=== PATIENT | female | born 1940 | race Caucasian/White ===

== ENCOUNTER 2017-11-12 06:05 | Inpatient (IN) ==
[2017-11-12] MEDS ORDERED: *HR* HYDROcodone/Acet 5/325 mg TABLET PO ONE (06:12)
[2017-11-12] MEDS ORDERED: cefTRIAXone 1,000 MG in Water for inj. (sterile) 20 ML 10 ML IVP ONE (06:13)
--- NOTE | 2017-11-12 06:16 | Emergency Department Note ---
Disposition Clinical Impression: Cellulitis Qualifiers: Site of cellulitis: extremity Site of cellulitis of extremity: lower extremity Laterality: left Qualified Code(s): L03.116 - Cellulitis of left lower limb Disposition: Still a Patient Condition: Fair Referrals: Dima Shaikh MD [Primary Care Provider] - Forms: ED Satisfaction Letter Extremity Problem HPI - General Chief complaint: ED Extremity Problem,Nontraumatic Stated complaint: recheck of LLE celluitis Time Seen by Provider: 11/12/17 06:11 Source: patient Mode of arrival: EMS Limitations: no limitations Nursing Notes Reviewed: Yes Vital Signs Reviewed: Yes - History of Present Illness HPI Narrative: 77-year-old female with history of hypertension, chronic kidney disease as well as recent diagnosis of cellulitis presents for evaluation of left lower leg pain and swelling. Patient notes that symptom onset with the swelling and the pain is been over the past 2 weeks. States she is been on Keflex since Monday. Patient does note some mild relief of the swelling however the redness has progressed up the leg. Patient denies history of diabetes. Patient states she has been taking her medications as directed. Reports low- grade fevers. Denies any chest pain, shortness of breath, cough. Denies any nausea or vomiting or abdominal pain. Denies any numbness or tingling of the extremities. Patient states that she has had some swelling that she attributed to recent blood pressure medication a couple months ago however the redness and pain worsened over the past 2 weeks. Pain Scale: 7 - Related Data Home Medications Medication Instructions Recorded Confirmed Albuterol Neb 06/04/16 Aspirin 06/04/16 Folbic Tablet 06/04/16 Lisinopril 06/04/16 Singulair 06/04/16 Theophylline 06/04/16 ATROVENT Inhaler 11/04/17 Amlodipine Besylate 11/04/17 Calcium Magnesium Caplet 11/04/17 Previous Rx's Medication Instructions Recorded Albuterol Sulfate [Albuterol 2 puff IH QID 2 Days inhaler 06/04/16 Inhaler] Allergies Allergy/AdvReac Type Severity Reaction Status Date / Time Sulfa (Sulfonamide Allergy Itching Verified 06/04/16 11:27 Antibiotics) codeine AdvReac Nausea Verified 11/04/17 16:21 All systems ED: reviewed and negative except as stated. Constitutional: Reports: fever Cardiovascular: Denies: chest pain Respiratory: Denies: cough, dyspnea Gastrointestinal: Denies: abdominal pain, nausea, vomiting Past Medical History - Past Medical History Source: patient Medical history: Reports: COPD, hypertension, other Surgical history: Reports: non-contributory - Social History Smoking Status: Never smoker Smokeless Tobacco Status: No Alcohol use: Reports: none Drug use: Reports: none Physical Exam - General Limitations: no limitations General appearance: alert, in no apparent distress - Head Head exam: atraumatic, normocephalic, normal inspection - Eye Eye exam: Present: normal appearance, PERRL, EOMI - ENT ENT exam: normal exam, mucous membranes moist - Neck Neck exam: Present: normal inspection - Chest Chest inspection: Present: normal inspection, symmetric chest wall rise - Respiratory Respiratory exam: Present: normal lung sounds bilaterally. Absent: respiratory distress - Cardiovascular Cardiovascular exam: Present: regular rate, normal rhythm. Absent: systolic murmur - Abdominal Exam Abdominal exam: Present: soft, Non-Tender - Expanded Lower Extremity Exam Hip/Pelvis exam: Present: normal inspection. Absent: tenderness Upper leg exam: Present: normal inspection. Absent: tenderness Knee exam: Present: normal inspection. Absent: tenderness Lower leg exam: Present: tenderness, swelling, erythema (Erythema tracking proximally up the lateral aspect of the leg. Warm to the touch. Consistent with cellulitis.). Absent: deformity, crepitus Neurovascular/Tendon exam: Present: normal capillary refill. Absent: pulse deficit, motor deficit, sensory deficit - Back Exam Back exam: Present: normal inspection - Neurological Exam Neurological exam: Present: alert - Skin Skin exam: Present: warm, dry, intact, normal color Course Course Narrative: Patient seen and examined. Patient's been on oral antibiotics however has had worsening pain and redness of the lower extremity. Patient's been on appropriate antibiotic regimen. Swelling appears to have improved however the patient's pain and redness has progressed. Patient will likely require admission. Patient will need IV antibiotics and close monitor sure symptom resolution. Given age and the patient's comorbidities as well as appropriate outpatient antibiotics the patient will be admitted to the hospital service. Vital Signs Temperature 99.4 F 11/12/17 06:06 Pulse Rate 97 11/12/17 06:06 Respiratory Rate 18 11/12/17 06:06 Blood Pressure 174/146 11/12/17 06:06 O2 Sat by Pulse Oximetry 97 11/12/17 06:06 Temperature 99.4 F 11/12/17 06:06 Pulse Rate 97 11/12/17 06:06 Respiratory Rate 18 11/12/17 06:06 Blood Pressure 174/146 11/12/17 06:06 O2 Sat by Pulse Oximetry 97 11/12/17 06:06 Oxygen Delivery Oxygen Delivery Room Air Extremity Problem, Nontraumati - [facility] Narrative Medical decision making narrative: 77-year-old female persists for evaluation of leg pain and swelling. Patient was diagnosed with cellulitis. Clinically the patient has progression of cellulitis in redness. Patient's been on antibiotics over the past 5 days however the redness has progressed. Patient clinically does not have signs or symptoms of a DVT or underlying blood clot. Given the patient's age comorbidities as well as being on antibiotics for the past week with progression of symptoms patient would likely need admission with IV antibiotics to ensure symptom resolution. Patient has soft compartments and there is low suspicion for concerns of any necrotizing soft tissue infection. Patient is neurovascularly intact. At the time of this dictation the patient will be signed out to the oncoming providers for anticipated disposition. S.B.Charity - Maryanne Situation: Demographics Background: Presenting Complaint Assessment: Vital Signs, Course and respsone to treatment, Patient/Family Expectation Recommendation: Barrier(s) to disposition, Recommendation based on pending studies, treatments, or consults S.B.Charity Report Given to: Dr. Francisco J Madden Repor Time: 07:00 Attestation Statement - Attestation Attestation: I examined this patient and my medical decision-making was reviewed with the Resident Physician. I agree with the documented findings, disposition and treatment plan as described except to the extent set forth below. Findings consistent with cellulitis left lower extremity. We will admit for further management as she has failed outpatient antibiotic therapy.
[2017-11-12 06:43] LABS: Basophils % 0.1 %; Hematocrit 36.8 % (35.3-44.9); Immature Granulocytes % 1.6 % (0-4); Lymphocytes # 0.8 K/mcL (0.6-4.6); Lymphocytes % 3.1 %; Mean Corpuscular HGB Conc 32.6 g/dL (31.6-35.5); Mean Corpuscular Hemoglobin 29.6 pg (28.0-33.3); Mean Corpuscular Volume 90.6 fL (83.0-100.0); Mean Platelet Volume 10.6 fL (9.4-12.4); Monocytes # 0.5 K/mcL (0.0-1.3); Neutrophils # 22.9 K/mcL (1.6-8.9); Platelet Count 482 K/mcL (140-400); Red Blood Count 4.06 M/mcL (3.82-4.97); Red Cell Distribution Width 14.6 % (11.5-14.5); Segmented Neutrophils % 93.2 %
[2017-11-12 07:04] LABS: Calcium 9.5 mg/dL (8.6-10.3); Potassium 4.6 mEq/L (3.5-5.1)
[2017-11-12 07:05] LABS: Platelet Estimate Increased (Normal)
--- NOTE | 2017-11-12 07:14 | Emergency Department Note ---
Disposition Clinical Impression: Cellulitis Qualifiers: Site of cellulitis: extremity Site of cellulitis of extremity: lower extremity Laterality: left Qualified Code(s): L03.116 - Cellulitis of left lower limb Disposition: Admitted As Inpatient Condition: Good Time of Disposition: 07:18 Extremity Problem HPI - General Chief complaint: ED Extremity Problem,Nontraumatic Stated complaint: recheck of LLE celluitis Time Seen by Provider: 11/12/17 06:11 Source: patient Mode of arrival: EMS Limitations: no limitations Nursing Notes Reviewed: Yes Vital Signs Reviewed: Yes - History of Present Illness Pain Scale: 0 - Related Data Home Medications Medication Instructions Recorded Confirmed Albuterol Neb 06/04/16 Aspirin 06/04/16 Folbic Tablet 06/04/16 Lisinopril 06/04/16 Singulair 06/04/16 Theophylline 06/04/16 ATROVENT Inhaler 11/04/17 Amlodipine Besylate 11/04/17 Calcium Magnesium Caplet 11/04/17 Previous Rx's Medication Instructions Recorded Albuterol Sulfate [Albuterol 2 puff IH QID 2 Days inhaler 06/04/16 Inhaler] Allergies Allergy/AdvReac Type Severity Reaction Status Date / Time Sulfa (Sulfonamide Allergy Itching Verified 06/04/16 11:27 Antibiotics) codeine AdvReac Nausea Verified 11/04/17 16:21 Constitutional: Reports: fever Cardiovascular: Denies: chest pain Respiratory: Denies: cough, dyspnea Gastrointestinal: Denies: abdominal pain, nausea, vomiting Past Medical History - Past Medical History Attestation: Yes The following information was validated with the patient. Source: patient Medical history: Reports: COPD, hypertension, other Surgical history: Reports: non-contributory - Social History Smoking Status: Never smoker Smokeless Tobacco Status: No Alcohol use: Reports: none Drug use: Reports: none Physical Exam - General Limitations: no limitations General appearance: alert, in no apparent distress - Head Head exam: atraumatic, normocephalic, normal inspection - Eye Eye exam: Present: normal appearance, PERRL, EOMI - ENT ENT exam: normal exam, normal oropharynx, mucous membranes moist - Neck Neck exam: Present: normal inspection, full ROM, trachea midline - Chest Chest inspection: Present: normal inspection, symmetric chest wall rise - Respiratory Respiratory exam: Present: normal lung sounds bilaterally - Cardiovascular Cardiovascular exam: Present: regular rate, normal rhythm, normal heart sounds - Abdominal Exam Abdominal exam: Present: soft, Non-Tender. Absent: tenderness, distention, guarding, rebound, rigidity - Extremities Exam Extremities exam: Present: pedal edema (Mild edema of the left lower extremity up to mid calf with associated overlying cellulitis, calf nontender.) - Neurological Exam Neurological exam: Present: alert, oriented X3 - Psychiatric Psychiatric exam: Present: normal affect, normal mood - Skin Skin exam: Present: warm, dry, intact Course Course Narrative: This patient was a sign out from previous team, Dr. Valdez and Dr. Velarde. Please see their documentation for any additional details. In summary, patient is a 77-year-old female past medical history of hypertension, chronic kidney disease who presented today with cellulitis of the left lower leg. She states that for the past 2 weeks, she has had increased pain and swelling. She was started on Keflex on Monday and has been on this medication for possibly 5 days. She states that the redness is spreading. She also reports fevers. Denies any other symptoms of chest pain, shortness breath, nausea, vomiting, diarrhea, abdominal pain, any numbness, tingling, weakness. Patient has elevated white blood cell count which is likely related to cellulitis in addition to patient being on steroids. Patient was treated with vancomycin and Rocephin by previous team. Patient was waiting on lab results to come back to be admitted. Hospitalist has been paged at this time. Vital Signs Temperature 99.4 F 11/12/17 06:06 Pulse Rate 97 11/12/17 06:06 Respiratory Rate 18 11/12/17 06:06 Blood Pressure 174/146 11/12/17 06:06 O2 Sat by Pulse Oximetry 97 11/12/17 06:06 Temperature 99.4 F 11/12/17 06:06 Pulse Rate 75 11/12/17 08:04 Respiratory Rate 16 11/12/17 08:04 Blood Pressure 143/70 11/12/17 08:04 O2 Sat by Pulse Oximetry 95 11/12/17 08:04 Oxygen Delivery Oxygen Delivery Room Air Extremity Problem, Nontraumati - MDM Narrative Medical decision making narrative: This patient was a sign out from previous team, Dr. Valdez and Dr. Velarde. Please see their documentation for any additional details. In summary, patient is a 77-year-old female past medical history of hypertension, chronic kidney disease who presented today with cellulitis of the left lower leg. She states that for the past 2 weeks, she has had increased pain and swelling. She was started on Keflex on Monday and has been on this medication for possibly 5 days. She states that the redness is spreading. She also reports fevers. Denies any other symptoms of chest pain, shortness breath, nausea, vomiting, diarrhea, abdominal pain, any numbness, tingling, weakness. Patient has elevated white blood cell count which is likely related to cellulitis in addition to patient being on steroids. Patient was treated with vancomycin and Rocephin by previous team. Patient was waiting on lab results to come back to be admitted. Hospitalist has been paged at this time. - Medical Records Medical records reviewed: Yes I reviewed the patient's medical records. - Lab Data Lab results reviewed: Yes I reviewed the patient's lab results. Result diagrams: 11/12/17 06:33 11/12/17 06:12 Lab Results 11/12/17 11/12/17 11/12/17 Range/Units 06:12 06:33 06:33 WBC 24.6 H (4.3-11.1) K/mcL RBC 4.06 (3.82-4.97) M/mcL Hgb 12.0 (11.5-15.4) g/dL Hct 36.8 (35.3-44.9) % MCV 90.6 (83.0-100.0) fL MCH 29.6 (28.0-33.3) pg MCHC 32.6 (31.6-35.5) g/dL RDW 14.6 H (11.5-14.5) % Plt Count 482 H (140-400) K/mcL MPV 10.6 (9.4-12.4) fL Immature Gran % 1.6 (0-4) % Seg Neutrophils % 93.2 % Lymphocytes % 3.1 % Monocytes % 2.0 % Eosinophils % 0.0 % Basophils % 0.1 % Neutrophils # 22.9 H (1.6-8.9) K/mcL Lymphocytes # 0.8 (0.6-4.6) K/mcL Monocytes # 0.5 (0.0-1.3) K/mcL Eosinophils # 0.0 (0.0-0.6) K/mcL Basophils # 0.0 (0.0-0.2) K/mcL Platelet Estimate Increased H (Normal) Sodium 136 (136-145) mEq/L Potassium 4.6 (3.5-5.1) mEq/L Chloride 102 (98-107) mEq/L Carbon Dioxide 26 (23-29) mEq/L BUN 31 H (8-23) mg/dL Creatinine 1.12 (0.60-1.20) mg/dL Est GFR ( Amer) 57 L (> 60) Est GFR (Non-Af Amer) 47 L (> 60) BUN/Creatinine Ratio 28 H (6-26) Glucose 111 H (70-105) mg/dL Calculated Osmolality 289 (280-300) Lactic Acid 1.7 (0.5-2.2) mmol/L Calcium 9.5 (8.6-10.3) mg/dL S.B.A.R. - S.B.A.R. Situation: Demographics, MOA Background: Presenting Complaint, Relevant PMH, Meds, & Allergies Assessment: Vital Signs, Course and respsone to treatment, Exam Concerns, Patient/Family Expectation, Pertinant Lab Results Recommendation: Barrier(s) to disposition, Recommendation based on pending studies, treatments, or consults S.B.A.R. Report Given to: Dr. Hinkle Attestation Statement - Attestation Attestation: I, Prateek Ortega, examined this patient and my medical decision-making was reviewed with the COOK DINNER/PA/Advanced Practice Nurse/Resident Physician. I agree with the documented findings, disposition and treatment plan as described except to the extent set forth below. 77-year-old female received in sign out at 7 AM pending laboratory evaluation and admission for cellulitis that failed outpatient treatment of antibiotics. Patient taking Keflex at home. Left showed a leukocytosis as well as thrombocytosis. Patient started on antibiotics in the emergency department. She will be admitted for further care and evaluation.
[2017-11-12] MEDS ORDERED: Acetaminophen 325 MG TABLET PO PRN (07:27)
[2017-11-12] MEDS ORDERED: *HR* OxyCODONE Immed Rel 5 MG TABLET PO PRN (07:27)
[2017-11-12] MEDS ORDERED: Naloxone 0.4 MG/ML INJ IVP PRN (07:27)
--- NOTE | 2017-11-12 08:29 | Internal Med History&Physical ---
Date of Encounter: 11/12/17 Time of Encounter: 07:50 Internal Medicine - H&P: HPI Chief complaint: Left leg redness and pain History of present illness: Ms. Chaves is a 77 year old female with past medical history of asthma/COPD, hypertension, presented to the ED with 2 week history of left leg swelling and redness. She states that it started as a breast spot on the dorsum of her left foot that gradually spread toward her left knee. She was seen by her PCP on Monday and was given a course of PO Keflex and prednisone. It resolved the swelling but pain and redness persisted and went up as high as her mid-almonte. Also states that she had low-grade fever at home, no chills. Denies any chest pain, shortness of breath, cough, sputum production, abdominal pain, change in bowel habits, or dysuria. No other rash. She is unable to recall whether she had any insect bite or cracked toes. In the ED, she had borderline temperature of 99.4, hypertensive, but otherwise hemodynamically stable and saturating well on room air. Labs showed leukocytosis of 24.6 and creatinine at her baseline 1.12. She was given IV Vanco/Rocephin and admitted for further management. Upon questioning her CODE STATUS, she was undecided. Past Med Surg Social Fam HX - Past Medical History Attestation: Yes The following information was validated with the patient. Medical history: COPD, hypertension, other Additional medical history: heart and lung problems - Past Surgical History Surgical History: non-contributory - Social History Smoking Status: Never smoker Smokeless Tobacco Status: No Alcohol use: none Drug use: none Internal Medicine - H&P: Meds Albuterol Neb 06/04/16 [History] Albuterol Sulfate [Albuterol Inhaler] 2 puff IH QID 2 Days inhaler 06/04/16 [Rx ] Aspirin 06/04/16 [History] Folbic Tablet 06/04/16 [History] Lisinopril 06/04/16 [History] Singulair 06/04/16 [History] Theophylline 06/04/16 [History] ATROVENT Inhaler 11/04/17 [History] Amlodipine Besylate 11/04/17 [History] Calcium Magnesium Caplet 11/04/17 [History] 3 Allergy/AdvReac Type Severity Reaction Status Date / Time Sulfa (Sulfonamide Allergy Itching Verified 06/04/16 11:27 Antibiotics) codeine AdvReac Nausea Verified 11/04/17 16:21 All Systems PM: A 10-system review of systems was performed and is negative for pertinent findings except as documented above in the HPI. - Constitutional Vitals: Temp Pulse Resp BP Pulse Ox 99.4 F 75 16 143/70 95 11/12/17 06:06 11/12/17 08:04 11/12/17 08:04 11/12/17 08:04 11/12/17 08:04 Exam: General: Alert and oriented HEENT:EOM, pupils equal, round, and reactive. Cardiovascular:Normal S1 & S2, no murmurs or gallops. No JVD. Pulse regular. Lungs:Normal breath sounds, no wheezes or crackles. Abdomen:Soft, non-tender, no rigidity. Extremities: Left leg: redness noted from dorsum of L foot upto mid-almonte, sparing knee joint. No obvious fluctuance/mass noted on palpation but tender. Calf supple. No swelling. No skin breakdown. Neurological:Normal cognition and motor skills. Skin: No other rash identified. Intact skin. Pulses:Carotid and radial pulses normal +2. Rest of the physical exam is non-contributory Internal Med - H&P Results - Labs CBC & Chem 7: 11/12/17 06:33 11/12/17 06:12 - Assessment and plan (1) Cellulitis Current Visit: Yes Status: Acute Assessment and plan: Presented with two-week history of left leg redness and pain, progressed on oral Keflex as an outpatient. Although no areas of purulence was identified, since she failed outpatient therapy on cephalexin, will treat her with IV vancomycin today and observe her course. Part of leukocytosis may be attributed to prednisone use, monitor Check A1c tomorrow Follow-up on blood cultures Pain management Qualifiers: Site of cellulitis: extremity Site of cellulitis of extremity: lower extremity Laterality: left Qualified Code(s): L03.116 - Cellulitis of left lower limb (2) COPD (chronic obstructive pulmonary disease) Current Visit: No Status: Chronic Assessment and plan: Not in exacerbation Reconcile home inhalers when completed Qualifiers: COPD type: unspecified COPD Qualified Code(s): J44.9 - Chronic obstructive pulmonary disease, unspecified (3) Hypertension Current Visit: No Status: Chronic Assessment and plan: Elevated due to pain Resume home medications once completed Qualifiers: Hypertension type: essential hypertension Qualified Code(s): I10 - Essential (primary) hypertension (4) CKD (chronic kidney disease) stage 3, GFR 30-59 ml/min Current Visit: Yes Status: Acute Assessment and plan: Creatinine stable, continue to monitor. Antibody dosing renally (5) DVT prophylaxis Current Visit: Yes Status: Acute Assessment and plan: SQ heparin - Time Spent With Patient Total time spent is greater than 50% in coordination of care (as documented) at patient's floor/unit and/or counseling patient:
[2017-11-12] MEDS: Ipratropium 1 PUFF INHALER IH SCH ×3 (11:21→21:47)
[2017-11-12] MEDS: traMADol 50 MG TABLET PO PRN ×2 (13:13→21:31)
[2017-11-12] MEDS: *HR* Heparin 5,000 UNIT/ML VIAL SQ SCH (17:52)
[2017-11-12] MEDS ORDERED: Vancomycin (wt based) 1,000 MG VIAL IVPB SCH (19:00)
[2017-11-12] MEDS: Budesonide/Formoterol 160/4.5 MDI IH SCH (21:47)
[2017-11-13 01:46] LABS: Basophils # 0.1 K/mcL (0.0-0.2); Basophils % 0.3 %; Eosinophils # 0.1 K/mcL (0.0-0.6); Eosinophils % 0.3 %; Hematocrit 30.6 % (35.3-44.9); Immature Granulocytes % 1.5 % (0-4); Lymphocytes # 1.7 K/mcL (0.6-4.6); Lymphocytes % 7.6 %; Mean Corpuscular HGB Conc 32.4 g/dL (31.6-35.5); Mean Corpuscular Hemoglobin 29.1 pg (28.0-33.3); Mean Platelet Volume 10.7 fL (9.4-12.4); Monocytes # 0.5 K/mcL (0.0-1.3); Monocytes % 2.4 %; Neutrophils # 19.8 K/mcL (1.6-8.9); Platelet Count 422 K/mcL (140-400); Red Cell Distribution Width 14.7 % (11.5-14.5); Segmented Neutrophils % 87.9 %
[2017-11-13 01:47] LABS: Hemoglobin 9.9 g/dL (11.5-15.4)
[2017-11-13 02:04] LABS: BUN/Creatinine Ratio 25 (6-26); Blood Urea Nitrogen 26 mg/dL (8-23); Calcium 8.8 mg/dL (8.6-10.3); Carbon Dioxide 24 mEq/L (23-29); Chloride 103 mEq/L (98-107); Glucose 108 mg/dL (70-105); Osmolality,Calculated 283 (280-300); Potassium 4.2 mEq/L (3.5-5.1); Sodium 134 mEq/L (136-145); eGFR For Non-African Americans 50 (> 60)
[2017-11-13] MEDS: Ipratropium 1 PUFF INHALER IH SCH ×5 (05:37→23:26)
[2017-11-13] MEDS: *HR* Heparin 5,000 UNIT/ML VIAL SQ SCH ×2 (06:19→17:07)
[2017-11-13] MEDS: traMADol 50 MG TABLET PO PRN ×2 (06:30→22:12)
[2017-11-13] MEDS: Aspirin Enteric Coated 81 MG Tablet PO SCH (08:52)
[2017-11-13] MEDS: amLODIPine 5 MG TABLET PO SCH (08:52)
[2017-11-13] MEDS: Furosemide 20 MG TABLET PO SCH (08:52)
[2017-11-13] MEDS: Cholecalciferol (D-3) 1,000 UNIT TABLET PO SCH (08:54)
[2017-11-13 09:09] LABS: Estimated Average Glucose 120 mg/dl; Hemoglobin A1C 5.8 %
[2017-11-13] MEDS: Budesonide/Formoterol 160/4.5 MDI IH SCH (09:12)
--- NOTE | 2017-11-13 09:43 | Internal Med Progress Note ---
Date of Encounter: 11/13/17 Time of Encounter: 08:30 - Assessment and plan (1) Cellulitis Current Visit: Yes Status: Acute Assessment and plan: Presented with two-week history of left leg redness and pain, progressed on oral Keflex as an outpatient. Although no areas of purulence was identified, since she failed outpatient therapy on cephalexin, will treat her with IV vancomycin Received 2nd dose of Vanc today, clinically improved WBC also improving but still at 22.5, was on prednisone as an outpatient A1c normal Follow-up on blood cultures Pain management Qualifiers: Site of cellulitis: extremity Site of cellulitis of extremity: lower extremity Laterality: left Qualified Code(s): L03.116 - Cellulitis of left lower limb (2) COPD (chronic obstructive pulmonary disease) Current Visit: No Status: Chronic Assessment and plan: Not in exacerbation, resume home inhalers Qualifiers: COPD type: unspecified COPD Qualified Code(s): J44.9 - Chronic obstructive pulmonary disease, unspecified (3) Hypertension Current Visit: No Status: Chronic Assessment and plan: Resume home medications Qualifiers: Hypertension type: essential hypertension Qualified Code(s): I10 - Essential (primary) hypertension (4) CKD (chronic kidney disease) stage 3, GFR 30-59 ml/min Current Visit: Yes Status: Acute Assessment and plan: Creatinine stable, continue to monitor. Antibiotics dosing renally (5) DVT prophylaxis Current Visit: Yes Status: Acute Assessment and plan: SQ heparin - Subjective Interval history: States that her left leg feels less warm and less painful. Denies any melena, hematochezia, bright red blood per rectum, or hematemesis. No chest pain, shortness of breath, or lightheadedness. - Constitutional Vitals: Temp Pulse Resp BP Pulse Ox 97.7 F 67 16 137/72 94 11/13/17 06:55 11/13/17 06:55 11/13/17 09:12 11/13/17 06:55 11/13/17 09:12 Exam: General: Alert and oriented, not in distress Cardiovascular:Normal S1 & S2, no murmurs or gallops. No JVD. Pulse regular. Lungs:Normal breath sounds, no wheezes or crackles. Abdomen:Soft, non-tender, no rigidity. Extremities: Left leg: redness decreased to the level of her ankle with significant reduction in tenderness. Calf supple. Minimal swelling. No skin breakdown. Skin: No other rash identified. Intact skin. Internal Medicine: Result - Labs CBC & Chem 7: 11/13/17 01:17 11/13/17 01:17 Labs: Short CBC 11/13/17 Range/Units 01:17 WBC 22.5 H (4.3-11.1) K/mcL Hgb 9.9 L D (11.5-15.4) g/dL Hct 30.6 L (35.3-44.9) % Plt Count 422 H (140-400) K/mcL Neutrophils # 19.8 H (1.6-8.9) K/mcL BMP 11/13/17 01:17 Sodium 134 L Potassium 4.2 Chloride 103 Carbon Dioxide 24 BUN 26 H Creatinine 1.06 Glucose 108 H Calcium 8.8 Consult Discharge Plan - Plan Referrals: Dima Shaikh MD [Primary Care Provider] -
[2017-11-14] MEDS: Budesonide/Formoterol 160/4.5 MDI IH SCH ×2 (03:54→10:39)
[2017-11-14] MEDS: Ipratropium 1 PUFF INHALER IH SCH ×2 (04:12→10:38)
[2017-11-14 05:54] LABS: Eosinophils # 0.5 K/mcL (0.0-0.6); Hematocrit 34.3 % (35.3-44.9); Hemoglobin 11.2 g/dL (11.5-15.4); Mean Corpuscular HGB Conc 32.7 g/dL (31.6-35.5); Mean Corpuscular Hemoglobin 29.6 pg (28.0-33.3); Mean Corpuscular Volume 90.5 fL (83.0-100.0); Mean Platelet Volume 10.2 fL (9.4-12.4); Platelet Count 457 K/mcL (140-400); Red Blood Count 3.79 M/mcL (3.82-4.97); Red Cell Distribution Width 14.9 % (11.5-14.5)
[2017-11-14 06:19] LABS: Calcium 9.2 mg/dL (8.6-10.3); Potassium 4.5 mEq/L (3.5-5.1)
[2017-11-14 06:35] LABS: Lymphocytes # 1.5 K/mcL (0.6-4.6); Monocytes # 0.8 K/mcL (0.0-1.3); Neutrophils # 9.5 K/mcL (1.6-8.9); Platelet Estimate Increased (Normal); Reactive Lymphocytes Present (Not Present)
[2017-11-14] MEDS: *HR* Heparin 5,000 UNIT/ML VIAL SQ SCH (06:50)
[2017-11-14] MEDS: Cholecalciferol (D-3) 1,000 UNIT TABLET PO SCH (08:57)
[2017-11-14] MEDS: Furosemide 20 MG TABLET PO SCH (08:57)
[2017-11-14] MEDS: Aspirin Enteric Coated 81 MG Tablet PO SCH (08:57)
[2017-11-14] MEDS: amLODIPine 5 MG TABLET PO SCH (08:57)
--- NOTE | 2017-11-14 09:54 | Discharge Summary ---
- NOTES TO OUTPATIENT PROVIDER Notes to Outpatient Provider: Follow-up with left leg cellulitis , follow up with blood cx Orders not resulted at time of discharge: Pending orders 11/15/17 06:00 Vancomycin,Trough Timed Date of Encounter: 11/14/17 Time of Encounter: 09:53 - Discharge Diagnosis (1) Cellulitis Priority: Primary Status: Acute Qualifiers: Site of cellulitis: extremity Site of cellulitis of extremity: lower extremity Laterality: left Qualified Code(s): L03.116 - Cellulitis of left lower limb (2) COPD (chronic obstructive pulmonary disease) Priority: Secondary Status: Chronic Qualifiers: COPD type: unspecified COPD Qualified Code(s): J44.9 - Chronic obstructive pulmonary disease, unspecified (3) Hypertension Priority: Secondary Status: Chronic Qualifiers: Hypertension type: essential hypertension Qualified Code(s): I10 - Essential (primary) hypertension (4) CKD (chronic kidney disease) stage 3, GFR 30-59 ml/min Priority: Secondary Status: Acute (5) DVT prophylaxis Priority: Secondary Status: Acute Hospital course: Ms. Chaves is a 77 year old female with past medical history of asthma/COPD, hypertension, presented to the ED with 2 week history of left leg swelling and redness. She states that it started as a breast spot on the dorsum of her left foot that gradually spread toward her left knee. She was seen by her PCP on Monday and was given a course of PO Keflex and prednisone. It resolved the swelling but pain and redness persisted and went up as high as her mid-[place]. Also states that she had low-grade fever at home, no chills. Denies any chest pain, shortness of breath, cough, sputum production, abdominal pain, change in bowel habits, or dysuria. No other rash. She is unable to recall whether she had any insect bite or cracked toes. In the ED, she had borderline temperature of 99.4, hypertensive, but otherwise hemodynamically stable and saturating well on room air. Labs showed leukocytosis of 24.6 ( although she was on prednisone ) and creatinine at her baseline 1.12. She was given IV Vanco/Rocephin and admitted for further management. Being treated with IV ABx from 11/12-11/14, she continued to show great improvement in the left leg cellulitis. leukocytosis trended down from 24.6 to 12.8, she remained Afebrile. She was discharged on oral doxycycline to complete. Discharge discussed with: patient, nurse - Time Spent with Patient Total time spent providing and/or coordinating discharge services: Greater than 30 minutes (35) - Discharge Medications Prescriptions: Doxycycline Hyclate 100 mg PO BID #14 tablet Home Medications: Albuterol Sulfate [Ventolin Hfa] 2 puff IH Q6H PRN 11/12/17 [History] Aspirin [Lo-Dose Aspirin EC] 81 mg PO DAILY 11/12/17 [History] Cholecalciferol (D-3) [Vitamin D] 2,000 unit PO DAILY 11/12/17 [History] Fluticasone/Salmeterol [Advair Hfa 230-21 Mcg Inhaler] 2 puff IH BID 11/12/17 [ History] Furosemide [Lasix] 20 mg PO DAILY 11/12/17 [History] Ipratropium [ATROVENT Inhaler] 2 puff IH Q6HR 11/12/17 [History] Montelukast [Singulair] 10 mg PO DAILY 11/12/17 [History] Omeprazole [PriLOSEC] 40 mg PO DAILY 11/12/17 [History] Theophylline Anhydrous [Idris-24] 300 mg PO BID 11/12/17 [History] amLODIPine [Norvasc] 5 mg PO DAILY 11/12/17 [History] Doxycycline Hyclate 100 mg PO BID #14 tablet 11/14/17 [Rx] Allergies/Adverse Reactions: 3 Allergy/AdvReac Type Severity Reaction Status Date / Time Sulfa (Sulfonamide Allergy Itching Verified 06/04/16 11:27 Antibiotics) codeine AdvReac Nausea Verified 11/04/17 16:21 Date of admission: 11/13/17 09:40 Primary care physician: Dima Shaikh MD Consults: 11/13/17 09:49 Consult to Physical Therapy [CONS] Routine Comment: Evaluate, develop and implement POC Reason for Consult: L leg cellulitis, uncomfortable to ambulate. HOme safety Does patient have active BEDREST order?: No Is patient medically & hemodynamically stable?: Yes - Constitutional Vitals: Temp Pulse Resp BP Pulse Ox 97.9 F 73 16 153/75 95 11/14/17 07:33 07/31/18 07:33 11/14/17 07:33 11/14/17 07:33 11/14/17 07:33 Exam: General: Patient is alert, oriented, no acute distress, Head: atraumatic, normocephalic, Eye: normal appearance, PERRL, no scleral icterus, no conjunctival injection ENT: mucous membranes moist, normal external ear exam Neck: normal inspection, trachea midline, full ROM, no carotid bruits Chest: normal inspection, symmetric chest rise Respiratory: Good respiratory effort. Bilateral breath sounds are clear without wheezing, crackles, or rhonchi. Cardiovascular: Regular rate and rhythm. s1 and s2 No clicks, rubs, gallops, or murmors. Abdomen: Bowel sounds present normoactive x-4 quadrants. Abdomen is soft, nondistended. Epigastric tenderness. No guarding or rebound. No organomegaly noted, obese musculoskeletal: Spontaneously moving all extremities. no edema, no calf tenderness Skin: warm, dry, intact. redness noted from dorsum of L foot to 2cm above ankle. No obvious fluctuance/mass noted on palpation, minimal warmth. No swelling. No skin breakdown. Neuro: Alert and oriented x4. Sensation light touch intact. Cranial nerves 2- 12 is intact. Not aphasic Psych: Patient's affect is normal - Patient Status Disposition: Home, Self-Care Condition: Good Functional capacity at discharge: independent ambulation - Discharge Instructions Instructions: Cellulitis (DC) Follow Up With: Dima Shaikh MD [Primary Care Provider] - 11/20/17 10:15 am - Diet and Activity Activity: increase activity as tolerated Diet: advance to your usual diet
[2017-11-14 10:47] VITALS: BP 147/77
[2017-11-14] MEDS ORDERED: Aminoglycoside Consult 1 EACH MC ONE (14:30)
== END 2017-11-14 14:31 | disposition home or self-care (01) | DRG 603 ==
LOC: 3ANU 06:05 → EMEROO 06:05 → 3ANU 08:27 → SUATTDRO 11-13 09:40
PROVIDERS: ADMIT Internal Medicine; ATTEND Internal Medicine

== ENCOUNTER 2021-10-24 09:28 | Observation (INO) ==
[2021-10-24] MEDS ORDERED: Ondansetron 4 MG/2 ML VIAL IVP PRN ×2 (09:49→15:26)
[2021-10-24] MEDS ORDERED: 0.9 % Sodium Chloride 1,000 ML IV ONE (09:49)
[2021-10-24] MEDS ORDERED: Iopamidol - 370 500 ML MLS IVP ONE (09:50)
[2021-10-24 10:15] LABS: Basophils % 0.8 %; Hematocrit 30.2 % (35.3-44.9); Hemoglobin 10.2 g/dL (11.5-15.4); Immature Granulocytes % 0.4 % (0-4); Lymphocytes % 50.6 %; Mean Corpuscular HGB Conc 33.8 g/dL (31.6-35.5); Mean Corpuscular Hemoglobin 31.3 pg (28.0-33.3); Mean Corpuscular Volume 92.6 fL (83.0-100.0); Mean Platelet Volume 9.4 fL (9.4-12.4); Monocytes # 0.4 K/mcL (0.0-1.3); Monocytes % 17.1 %; Neutrophils # 0.8 K/mcL (1.6-8.9); Platelet Count 348 K/mcL (140-400); Red Blood Count 3.26 M/mcL (3.82-4.97); Red Cell Distribution Width 15.7 % (11.5-14.5); Segmented Neutrophils % 31.1 %; White Blood Count 2.5 K/mcL (4.3-11.1)
[2021-10-24 10:27] LABS: Lymphocytes # 1.3 K/mcL (0.6-4.6)
[2021-10-24 10:34] LABS: Alanine Aminotransferase 9 Units/L (7-52); Albumin 3.7 g/dL (3.5-5.7); Albumin/Globulin Ratio 1.3 (1.1-2.2); Alkaline Phosphatase 82 Units/L (34-104); Aspartate Amino Transferase 22 Units/L (13-39); BUN/Creatinine Ratio 15 (6-26); Bilirubin,Direct 0.1 mg/dL (0.0-0.2); Bilirubin,Indirect 0.3 mg/dL (0.0-1.0); Bilirubin,Total 0.4 mg/dL (0.3-1.0); Blood Urea Nitrogen 14 mg/dL (8-23); Calcium 8.3 mg/dL (8.6-10.3); Carbon Dioxide 23 mEq/L (23-29); Chloride 93 mEq/L (98-107); Globulin 2.9 g/dL (2.4-3.5); Glucose 93 mg/dL (70-105); Lipase 28 Units/L (11-82); Osmolality,Calculated 260 (280-300); Potassium 3.7 mEq/L (3.5-5.1); Sodium 125 mEq/L (136-145); Total Protein 6.6 g/dL (6.4-8.9); Troponin I < 0.03 ng/mL (< 0.04); eGFR For African Americans > 60 (> 60); eGFR For Non-African Americans 56 (> 60)
[2021-10-24 11:47] LABS: Bilirubin,Urine Negative (Negative); Blood,Urine Negative (Negative); Clarity,Urine Clear (Clear); Color,Urine Colorless (Yellow); Glucose,Urine (UA) Normal (Normal); Ketones,Urine Negative (Negative); Leukocyte Esterase,Urine Negative (Negative); Nitrite,Urine Negative (Negative); Protein,Urine Negative (Neg-Trace); Specific Gravity,Urine 1.006 (1.010-1.025); Urobilinogen,Urine Normal (Normal)
[2021-10-24 15:09] LABS: Adenovirus F 40/41 PCR Not detected (Not detect); Astrovirus PCR Not detected (Not detect); C.difficile Toxin A/B Gene PCR Not detected (Not detect); Campylobacter by PCR Not detected (Not detect); Cryptosporidium by PCR Not detected (Not detect); Cyclospora cayetanensis PCR Not detected (Not detect); E. coli O157 by PCR Not detected (Not detect); Entamoeba histolytica PCR Not detected (Not detect); Enteroaggregative E.coli(EAEC) Not detected (Not detect); Enteropathogenic E.coli(EPEC) DETECTED (Not detect); Enterotoxigenic E.coli (ETEC) Not detected (Not detect); Giardia lamblia PCR Not detected (Not detect); Norovirus GI/GII PCR Not detected (Not detect); Plesiomonas shigelloides PCR Not detected (Not detect); Rotavirus A PCR Not detected (Not detect); Salmonella PCR Not detected (Not detect); Sapovirus PCR Not detected (Not detect); Shig/EnteroinvasiveE coli EIEC Not detected (Not detect); Shigalike tox-prod E coli STEC Not detected (Not detect); Vibrio PCR Not detected (Not detect); Vibrio cholerae PCR Not detected (Not detect); Yersinia enterocolitica PCR Not detected (Not detect)
[2021-10-24] MEDS ORDERED: Acetaminophen 325 MG TABLET PO PRN (15:26)
[2021-10-24] MEDS ORDERED: Naloxone 0.4 MG/ML INJ IVP PRN (15:26)
[2021-10-24 15:47] LABS: Potassium,Urine 9.3 mEq/L; Sodium, Urine 29.9 mEq/L
[2021-10-24] MEDS: MetroNIDAZOLE 500 MG/100 ML 500 MG/100 ML BAG IVPB SCH (16:14)
[2021-10-24] MEDS: 0.9 % Sodium Chloride 1,000 ML IVC SCH (16:15)
[2021-10-24 21:07] LABS: BUN/Creatinine Ratio 13 (6-26); Blood Urea Nitrogen 12 mg/dL (8-23); Carbon Dioxide 18 mEq/L (23-29); Chloride 102 mEq/L (98-107); Glucose 97 mg/dL (70-105); Osmolality,Calculated 276 (280-300); Potassium 4.2 mEq/L (3.5-5.1); Sodium 133 mEq/L (136-145); eGFR For African Americans > 60 (> 60); eGFR For Non-African Americans 60 (> 60)
[2021-10-25] MEDS: MetroNIDAZOLE 500 MG/100 ML 500 MG/100 ML BAG IVPB SCH ×3 (00:22→15:40)
[2021-10-25 06:24] LABS: Basophils % 0.3 %; Hematocrit 28.3 % (35.3-44.9); Hemoglobin 9.1 g/dL (11.5-15.4); Immature Granulocytes % 0.7 % (0-4); Lymphocytes # 1.4 K/mcL (0.6-4.6); Lymphocytes % 47.4 %; Mean Corpuscular HGB Conc 32.2 g/dL (31.6-35.5); Mean Corpuscular Hemoglobin 30.7 pg (28.0-33.3); Mean Corpuscular Volume 95.6 fL (83.0-100.0); Mean Platelet Volume 9.4 fL (9.4-12.4); Monocytes # 0.4 K/mcL (0.0-1.3); Monocytes % 14.1 %; Neutrophils # 1.1 K/mcL (1.6-8.9); Platelet Count 365 K/mcL (140-400); Red Blood Count 2.96 M/mcL (3.82-4.97); Red Cell Distribution Width 16.2 % (11.5-14.5); Segmented Neutrophils % 37.5 %; White Blood Count 2.9 K/mcL (4.3-11.1)
[2021-10-25 06:48] LABS: BUN/Creatinine Ratio 12 (6-26); Blood Urea Nitrogen 10 mg/dL (8-23); Calcium 7.9 mg/dL (8.6-10.3); Carbon Dioxide 19 mEq/L (23-29); Chloride 103 mEq/L (98-107); Glucose 79 mg/dL (70-105); Osmolality,Calculated 270 (280-300); Potassium 3.8 mEq/L (3.5-5.1); Sodium 131 mEq/L (136-145); eGFR For African Americans > 60 (> 60); eGFR For Non-African Americans > 60 (> 60)
[2021-10-25 06:50] LABS: BUN/Creatinine Ratio 12 (6-26); Blood Urea Nitrogen 10 mg/dL (8-23); Carbon Dioxide 20 mEq/L (23-29); Chloride 103 mEq/L (98-107); Glucose 81 mg/dL (70-105); Osmolality,Calculated 272 (280-300); Potassium 3.8 mEq/L (3.5-5.1); Sodium 132 mEq/L (136-145); eGFR For African Americans > 60 (> 60); eGFR For Non-African Americans > 60 (> 60)
[2021-10-25 07:02] LABS: Magnesium 1.5 mg/dL (1.6-2.6); Phosphorous 3.1 mg/dL (2.7-4.5); Thyroid Stimulating Hormone 2.579 mcIU/mL (0.340-5.600)
[2021-10-25] MEDS: 0.9 % Sodium Chloride 1,000 ML IVC SCH (07:41)
[2021-10-25 10:11] LABS: Adenovirus Not Detected (Not Detect); Bordetella Pertussis Not Detected (Not Detect); Chlamydophila pneumoniae Not Detected (Not Detect); Coronavirus 229E Not Detected (Not Detect); Coronavirus HKU1 Not Detected (Not Detect); Coronavirus NL63 Not Detected (Not Detect); Coronavirus OC43 Not Detected (Not Detect); Human Metapneumovirus Not Detected (Not Detect); Human Rhinovirus/Enterovirus Not Detected (Not Detect); Influenza A Subtype 2009 H1 Not Detected (Not Detect); Influenza B Not Detected (Not Detect); Mycoplasma pneumoniae Not Detected (Not Detect); Parainfluenza Virus 1 Not Detected (Not Detect); Parainfluenza Virus 2 Not Detected (Not Detect); Parainfluenza Virus 3 Not Detected (Not Detect); Parainfluenza Virus 4 Not Detected (Not Detect); Respiratory Syncytial Virus Not Detected (Not Detect)
[2021-10-25 10:12] LABS: SARS-CoV-2 DETECTED (Not Detect)
[2021-10-25] MEDS: Sodium Bicarbonate 75 MEQ in 0.45 % Sodium Chloride 1,000 ML IVC SCH (10:27)
[2021-10-25] MEDS ORDERED: Albuterol 2.5 MG/3 ML NEBULIZER IH PRN (11:26)
[2021-10-25] MEDS: Metoprolol XL (24 HR) Succ 25 MG TAB.ER.24H PO SCH (11:45)
[2021-10-26] MEDS: MetroNIDAZOLE 500 MG/100 ML 500 MG/100 ML BAG IVPB SCH ×2 (01:13→09:00)
[2021-10-26] MEDS ORDERED: *HR* Promethazine 25 MG/ML VIAL IM ONE (02:16)
[2021-10-26 03:07] VITALS: PULSE 71
[2021-10-26 06:21] LABS: Basophils % 0.3 %; Eosinophils % 0.6 %; Hematocrit 27.9 % (35.3-44.9); Immature Granulocytes % 0.3 % (0-4); Lymphocytes % 56.8 %; Mean Corpuscular HGB Conc 32.3 g/dL (31.6-35.5); Mean Corpuscular Hemoglobin 30.6 pg (28.0-33.3); Mean Corpuscular Volume 94.9 fL (83.0-100.0); Mean Platelet Volume 9.4 fL (9.4-12.4); Monocytes # 0.4 K/mcL (0.0-1.3); Monocytes % 11.4 %; Neutrophils # 1.1 K/mcL (1.6-8.9); Platelet Count 329 K/mcL (140-400); Red Blood Count 2.94 M/mcL (3.82-4.97); Red Cell Distribution Width 16.6 % (11.5-14.5); Segmented Neutrophils % 30.6 %; White Blood Count 3.6 K/mcL (4.3-11.1)
[2021-10-26 06:24] VITALS: BP 175/70; TEMP 97.7; O2SAT 96
[2021-10-26 06:44] LABS: BUN/Creatinine Ratio 10 (6-26); Blood Urea Nitrogen 8 mg/dL (8-23); Calcium 8.2 mg/dL (8.6-10.3); Carbon Dioxide 23 mEq/L (23-29); Chloride 104 mEq/L (98-107); Glucose 87 mg/dL (70-105); Magnesium 1.8 mg/dL (1.6-2.6); Osmolality,Calculated 272 (280-300); Phosphorous 2.7 mg/dL (2.7-4.5); Potassium 4.2 mEq/L (3.5-5.1); Sodium 132 mEq/L (136-145); eGFR For African Americans > 60 (> 60); eGFR For Non-African Americans > 60 (> 60)
[2021-10-26] MEDS: Sodium Bicarbonate 75 MEQ in 0.45 % Sodium Chloride 1,000 ML IVC SCH (07:58)
[2021-10-26] MEDS: Metoprolol XL (24 HR) Succ 25 MG TAB.ER.24H PO SCH (08:58)
[2021-10-26] MEDS ORDERED: Magnesium Oxide 400 MG TABLET PO SCH (09:00)
== END 2021-10-26 15:30 | disposition home or self-care (01) ==
LOC: 3BNU 09:28 → EMEROOARM 09:28 → SUATTDRO 15:51 → 3BNU 19:42
PROVIDERS: ADMIT Student in an Organized Health Care Education/Training Program; ATTEND Student in an Organized Health Care Education/Training Program